=== PATIENT | female | born 1995 | race Two or more races ===

== ENCOUNTER 2022-11-12 20:37 | Emergency (ER) | payer OTHER ==
[~2022-11-12] VITALS: Ht 170.2 cm; Wt 130.0 kg
[2022-11-12 22:41] LABS: Urine Bacteria MOD /hpf (None Seen); Urine Blood 3+ /uL (Negative); Urine Hyaline Cast FEW /lpf (0 - 2); Urine Mucus FEW (None Seen); Urine Specific Gravity 1.023 (1.001-1.035); Urine WBC 45 /hpf (0 - 5)
[2022-11-12 23:41] LABS: Basophils # (auto) 0.1 10 ^3/uL (0-0.2); Basophils % (auto) 1.2 % (0.0-2.0); Eosinophils # (auto) 0.1 10 ^3/uL (0-0.8); Eosinophils % (auto) 1.1 % (0.0-7.0); Hematocrit 37.7 % (36.0-46.0); Hemoglobin 12.7 g/dL (12.2-16.2); Lymphocytes # (auto) 3.3 10 ^3/uL (0.4-5.4); Lymphocytes % (auto) 28.5 % (10.0-50.0); Mean Corpuscular Hemoglobin 28.2 pg (28.0-32.0); Mean Corpuscular Hgb Conc. 33.6 g/dL (32.0-36.0); Mean Corpuscular Volume 83.8 fL (80.0-100.0); Monocytes # (auto) 0.6 10 ^3/uL (0-1.3); Monocytes % (auto) 5.3 % (0.0-12.0); Neutrophils # (auto) 7.5 10 ^3/uL (1.6-8.6); Neutrophils % (auto) 63.9 % (37.0-80.0); Red Blood Cells 4.49 10^6/uL (4.0-5.20); Red Cell Distribution Width 14.9 % (11.8-14.3); White Blood Cell 11.7 10^3/uL (4.4-10.8)
[2022-11-12 23:45] LABS: Albumin 3.5 g/dL (3.4-5.0); BUN/Creatinine Ratio 18.9; Calcium 9.2 mg/dL (8.5-10.1); Potassium 3.7 mmol/L (3.5-5.1)
[2022-11-12 23:48] LABS: Bilirubin, Total 0.1 mg/dL (0.2-1.0); Total Protein 8.2 g/dL (6.4-8.2)
[2022-11-13] MEDS ORDERED: PHEN-1045 PO (00:01)
[2022-11-13] MEDS ORDERED: NITR-87 PO (00:01)
[2022-11-13 00:09] VITALS: BP 131/87
== END 2022-11-13 00:24 | disposition home or self-care (01) ==
LOC: ER 20:37
DX: N39.0 Urinary tract infection, site not specified (principal); Z88.1 Allergy status to other antibiotic agents
CPT/HCPCS: 36415; 74176; 80053; 81001; 83690; 85025